=== PATIENT | male | born 1990 | race Caucasian/White ===

== ENCOUNTER → 2019-09-24 09:04 | Outpatient (CLI) | payer OTHER, SELFPAY ==
--- NOTE | 2019-09-24 | DI.US.S_ITS ---
PROCEDURE: US ABDOMEN COMPLETE INDICATIONS: RUQ PAIN TECHNIQUE: Real-time scanning was performed of the abdominal and retroperitoneal organs, with image documentation. COMPARISON: None. FINDINGS: Liver: Liver is normal in size and homogeneous in echotexture. Slightly increased hepatic echogenicity suggesting fatty infiltration. Within the right hepatic lobe posteriorly near the malini hepatis, there are 2 hypoechoic foci without vascularity measuring 1.5 x 1.3 x 0.6 cm and 1.9 x 1.6 x 1.2 cm. Gallbladder: Gallbladder is normal in sonographic appearance without gallstones, gallbladder wall thickening, pericholecystic fluid, or abnormal sonographic Roberson's. Biliary ducts: Intrahepatic bile ducts are non-dilated. Extrahepatic bile duct caliber measures 4 mm. Normal is 6-7 mm or less in diameter, or 10 mm or less post-cholecystectomy. Pancreas: Visualized portions of the pancreas are sonographically normal. Spleen: Spleen is normal in size and homogeneous in echotexture. Kidneys: Kidneys are normal in size and echotexture. Right kidney measures 9.4 cm long; left kidney measures 10.2 cm long. No hydronephrosis or nephrolithiasis. No solid masses. Aorta: Visualized aorta is normal in caliber at less than 3 cm. Iliacs: Proximal common iliac arteries are normal in caliber at less than 2.5 cm. IVC: Intrahepatic inferior vena cava is patent. Miscellaneous: No free abdominal fluid. IMPRESSION: Minimal diffusely increased hepatic echogenicity likely related to chronic hepatocellular disease/fatty infiltration. There are 2 hypoechoic, avascular foci near the malini hepatis in the right hepatic lobe measuring approximately 1.5 and 1.9 cm respectively and are favored to represent focal fatty sparing. If there is persistent clinical concern, consider further characterization with a multiphasic contrast-enhanced CT or MRI of the abdomen (liver mass protocol). Otherwise, unremarkable sonographic evaluation of the abdomen. Dictated by: Mainor Delaney M.D. on 09/24/2019 at 13:14 Approved by: Mainor Delaney M.D. on 09/24/2019 at 13:24
== END ==
PROVIDERS: Visit Provider Family Medicine
DX: R10.11 Right upper quadrant pain (principal)
CPT/HCPCS: 76700

== ENCOUNTER → 2020-11-10 08:58 | Outpatient (CLI) | payer OTHER, SELFPAY ==
[2020-11-10] MEDS: COVID-19 VACC #1, MRNA(MOD) 100 MCG/0.5 ML VIAL IM (09:05)
== END ==
PROVIDERS: Visit Provider Internal Medicine
DX: Z23 Encounter for immunization (principal)
CPT/HCPCS: 0011A; 91301

== ENCOUNTER → 2020-12-08 09:05 | Outpatient (CLI) | payer OTHER, SELFPAY ==
[2020-12-08] MEDS: COVID-19 VACC #2, MRNA(MOD) 100 MCG/0.5 ML VIAL IM (09:12)
== END ==
PROVIDERS: Visit Provider Internal Medicine
DX: Z23 Encounter for immunization (principal)
CPT/HCPCS: 0012A; 91301

== ENCOUNTER → 2023-05-16 09:55 | Outpatient (CLI) | payer OTHER, SELFPAY ==
[2023-05-16 19:17] LABS: Add Manual Diff / Slide Review NO; Basophils Absolute Auto 0 /uL (0-100); Basophils Percent Auto 0.6 % (0-2); Eosinophils Absolute Auto 100 /uL (0-450); Eosinophils Percent Auto 1.7 % (2-4); Hematocrit 44.8 % (41-53); Hemoglobin 15.4 g/dL (13.5-17.5); Lymphocytes Absolute Auto 1700 /uL (1100-4500); Lymphocytes Percent Auto 38.9 % (25-40); Mean Corpuscular HGB Conc 34.2 % (30-36); Mean Corpuscular Hemoglobin 31.1 PG (26-34); Mean Corpuscular Volume 90.9 fL (80-100); Monocytes Absolute Auto 300 /uL (0-900); Monocytes Percent Auto 7.2 % (3-14); Neutrophils Absolute Auto 2200 /uL (1500-7000); Neutrophils Percent Auto 51.6 % (50-75); Platelet Count 263 X10^3/uL (150-400); Red Blood Cell Count 4.93 X10^6/uL (4.5-5.9); White Blood Cell Count 4.3 X10^3/uL (4.5-11.0)
[2023-05-16 19:24] LABS: Alanine Aminotransferase 179 IU/L (<50); Albumin Globulin Ratio 1.7 (1.0-2.8); Alkaline Phosphatase 59 U/L (38-126); Aspartate Aminotransferase 79 IU/L (17-59); BUN Creatinine Ratio 14.1 (6-22); Bilirubin Total 0.6 mg/dL (0.2-1.3); Blood Urea Nitrogen 13 mg/dL (9-20); Calcium 10.2 mg/dL (8.4-10.2); Carbon Dioxide 26 mmol/L (22-32); Chloride 104 mmol/L (98-107); Cholesterol 261 mg/dL (140-199); Estimated Glomerular Filt Rate > 60 mL/min (>60); Globulin 2.9 g/dL (1.7-4.1); Glucose 80 mg/dL (70-100); HDL Cholesterol 62 mg/dL (40-60); HEMOLYSIS < 15 (0-50); LDL Cholesterol Calculated 157 mg/dL (<100); Potassium 4.5 mmol/L (3.4-5.1); Sodium 141 mmol/L (137-145); Total Protein 7.9 g/dL (6.3-8.2); Triglycerides 208 mg/dL (35-150)
[2023-05-16 19:55] LABS: TSH w/ Reflex to FT4 1.61 uIU/mL (0.47-4.68)
== END ==
PROVIDERS: PCP Physician Assistant Medical; Visit Provider Physician Assistant Medical
DX: Z13.9 Encounter for screening, unspecified (principal); R07.9 Chest pain, unspecified
CPT/HCPCS: 80053; 80061; 84443; 85025

== ENCOUNTER → 2023-05-29 12:18 | Outpatient (CLI) | payer OTHER, SELFPAY ==
--- NOTE | 2023-05-29 12:19 | DI.US.S_ITS ---
PROCEDURE: US ABDOMEN LIMITED INDICATIONS: ELEVATED LIVER ENZYMES TECHNIQUE: Real-time scanning was performed of the abdominal and retroperitoneal organs, with image documentation. COMPARISON: [facility], US, US ABDOMEN COMPLETE, 09/24/2019, 9:14. FINDINGS: Liver: Liver is normal in size and homogeneous in echotexture. The parenchyma is diffusely echogenic. Previously described two hypoechoic, a vascular foci are not well seen on today's exam. Gallbladder: No cholelithiasis or sludge. Normal gallbladder wall thickness measuring 2 mm. No pericholecystic fluid. Biliary ducts: Intrahepatic bile ducts are non-dilated. Extrahepatic bile duct caliber measures 2 mm. Normal is 6-7 mm or less in diameter, or 10 mm or less post-cholecystectomy. Pancreas: Visualized portions of the pancreas are sonographically normal. Miscellaneous: No free abdominal fluid. IMPRESSION: 1. Liver is diffusely echogenic which may be seen in the setting of parenchymal disease such as steatosis. Correlate with LFTs. 2. Previously described two hypoechoic, avascular foci within the liver on ultrasound dated September 24, 2019 are not well seen on today's exam. Dictated by: Sanchez Montoya M.D. on 05/29/2023 at 14:23 Approved by: Sanchez Montoya M.D. on 05/29/2023 at 14:27
== END ==
PROVIDERS: PCP Physician Assistant Medical; Referring Provider Physician Assistant Medical; Visit Provider Physician Assistant Medical
DX: R74.8 Abnormal levels of other serum enzymes (principal)
CPT/HCPCS: 76705

== ENCOUNTER → 2023-08-05 13:07 | Outpatient (CLI) | payer OTHER, SELFPAY ==
[2023-08-05 19:27] LABS: Hematocrit 41.2 % (41-53); Hemoglobin 14.2 g/dL (13.5-17.5); Mean Corpuscular HGB Conc 34.5 % (30-36); Mean Corpuscular Volume 86.8 fL (80-100); Platelet Count 273 X10^3/uL (150-400); Red Blood Cell Count 4.74 X10^6/uL (4.5-5.9); Red Cell Distribution Width 12.6 % (11.6-14.8); White Blood Cell Count 6.6 X10^3/uL (4.5-11.0)
[2023-08-05 19:47] LABS: Alanine Aminotransferase 58 IU/L (<50); Albumin 4.5 g/dL (3.5-5.0); Albumin Globulin Ratio 1.6 (1.0-2.8); Alkaline Phosphatase 47 U/L (38-126); Aspartate Aminotransferase 33 IU/L (17-59); BUN Creatinine Ratio 19.4 (6-22); Bilirubin Total 0.4 mg/dL (0.2-1.3); Blood Urea Nitrogen 19 mg/dL (9-20); Calcium 10.1 mg/dL (8.4-10.2); Carbon Dioxide 28 mmol/L (22-32); Chloride 102 mmol/L (98-107); Estimated Glomerular Filt Rate > 60 mL/min (>60); Gamma Glutamyl Transpeptidase 68 U/L (15-73); Globulin 2.8 g/dL (1.7-4.1); Glucose 94 mg/dL (70-100); HEMOLYSIS < 15 (0-50); Potassium 4.2 mmol/L (3.4-5.1); Sodium 137 mmol/L (137-145); Total Protein 7.3 g/dL (6.3-8.2)
== END ==
PROVIDERS: PCP Physician Assistant Medical; Visit Provider Physician Assistant Medical
DX: R79.89 Other specified abnormal findings of blood chemistry (principal); K76.0 Fatty (change of) liver, not elsewhere classified; R74.8 Abnormal levels of other serum enzymes
CPT/HCPCS: 80053; 82977; 85027

== ENCOUNTER → 2023-10-15 13:05 | Outpatient (CLI) | payer OTHER, SELFPAY ==
[2023-10-15 20:17] LABS: Alanine Aminotransferase 37 IU/L (<50); Albumin 4.6 g/dL (3.5-5.0); Albumin Globulin Ratio 1.6 (1.0-2.8); Alkaline Phosphatase 50 U/L (38-126); Aspartate Aminotransferase 31 IU/L (17-59); BUN Creatinine Ratio 19.1 (6-22); Bilirubin Total 0.5 mg/dL (0.2-1.3); Blood Urea Nitrogen 18 mg/dL (9-20); Calcium 9.8 mg/dL (8.4-10.2); Carbon Dioxide 26 mmol/L (22-32); Chloride 103 mmol/L (98-107); Estimated Glomerular Filt Rate > 60 mL/min (>60); Gamma Glutamyl Transpeptidase 54 U/L (15-73); Globulin 2.9 g/dL (1.7-4.1); Glucose 101 mg/dL (70-100); HEMOLYSIS 17 (0-50); Potassium 4.1 mmol/L (3.4-5.1); Sodium 139 mmol/L (137-145); Total Protein 7.5 g/dL (6.3-8.2)
[2023-10-15 20:18] LABS: Add Manual Diff / Slide Review NO; Basophils Absolute Auto 100 /uL (0-100); Basophils Percent Auto 0.9 % (0-2); Eosinophils Absolute Auto 500 /uL (0-450); Eosinophils Percent Auto 7.5 % (2-4); Hematocrit 42.1 % (41-53); Hemoglobin 14.3 g/dL (13.5-17.5); Lymphocytes Absolute Auto 2400 /uL (1100-4500); Lymphocytes Percent Auto 36.4 % (25-40); Mean Corpuscular Hemoglobin 29.5 PG (26-34); Mean Corpuscular Volume 86.9 fL (80-100); Monocytes Absolute Auto 500 /uL (0-900); Monocytes Percent Auto 7.3 % (3-14); Neutrophils Absolute Auto 3100 /uL (1500-7000); Neutrophils Percent Auto 47.9 % (50-75); Platelet Count 289 X10^3/uL (150-400); Red Blood Cell Count 4.84 X10^6/uL (4.5-5.9); Red Cell Distribution Width 13.2 % (11.6-14.8); White Blood Cell Count 6.5 X10^3/uL (4.5-11.0)
== END ==
PROVIDERS: PCP Physician Assistant Medical; Visit Provider Physician Assistant Medical
DX: K76.0 Fatty (change of) liver, not elsewhere classified (principal); F10.90 Alcohol use, unspecified, uncomplicated; R74.8 Abnormal levels of other serum enzymes
CPT/HCPCS: 80053; 82977; 85025

== ENCOUNTER 2024-03-16 00:14 | Emergency (ER) | payer OTHER, SELFPAY ==
[2024-03-16] VITALS (7 sets, daily range): BP systolic 115–131; BP diastolic 70–91; PULSE 78–90; RESP 18–98; TEMP 36.5; O2SAT 97–100; BMI 25.1
[2024-03-16 00:55] LABS: Add Manual Diff / Slide Review NO; Basophils Absolute Auto 0 /uL (0-100); Basophils Percent Auto 0.4 % (0-2); Eosinophils Absolute Auto 700 /uL (0-450); Eosinophils Percent Auto 6.8 % (2-4); Hematocrit 43.9 % (41-53); Hemoglobin 15.1 g/dL (13.5-17.5); Lymphocytes Absolute Auto 2600 /uL (1100-4500); Lymphocytes Percent Auto 24.6 % (25-40); Mean Corpuscular HGB Conc 34.3 % (30-36); Mean Corpuscular Hemoglobin 29.5 PG (26-34); Mean Corpuscular Volume 85.8 fL (80-100); Monocytes Absolute Auto 800 /uL (0-900); Neutrophils Absolute Auto 6600 /uL (1500-7000); Neutrophils Percent Auto 61.2 % (50-75); Platelet Count 321 X10^3/uL (150-400); Red Blood Cell Count 5.12 X10^6/uL (4.5-5.9); Red Cell Distribution Width 14.1 % (11.6-14.8); White Blood Cell Count 10.7 X10^3/uL (4.5-11.0)
[2024-03-16 01:02] LABS: Alanine Aminotransferase 146 IU/L (<50); Albumin 4.8 g/dL (3.5-5.0); Albumin Globulin Ratio 1.4 (1.0-2.8); Alkaline Phosphatase 81 U/L (38-126); Aspartate Aminotransferase 48 IU/L (17-59); BUN Creatinine Ratio 13.5 (6-22); Bilirubin Total 0.6 mg/dL (0.2-1.3); Blood Urea Nitrogen 14 mg/dL (9-20); Calcium 9.9 mg/dL (8.4-10.2); Carbon Dioxide 26 mmol/L (22-32); Chloride 102 mmol/L (98-107); Estimated Glomerular Filt Rate > 60 mL/min (>60); Globulin 3.5 g/dL (1.7-4.1); Glucose 96 mg/dL (70-100); HEMOLYSIS < 15 (0-50); Lipase 64 U/L (23-300); Sodium 138 mmol/L (137-145); Total Protein 8.3 g/dL (6.3-8.2)
--- NOTE | 2024-03-16 01:30 | ED.ABDPAIN ---
HPI - Abdominal Pain General Chief Complaint: Abdominal Pain Stated Complaint: ABD PAIN Time Seen by Provider: 03/16/24 00:59 Source: patient Mode of arrival: Ambulatory History of Present Illness HPI narrative: 33-year-old male with no history of prior abdominopelvic surgeries, no chronic abdominal problems, now with 4 days duration intermittent loose stools, not particularly painful until noon yesterday, central lower abdominal discomfort, not relieved with loose stools, some nausea without emesis. No fevers or chills. No cough, shortness of breath, headache, sore throat symptoms. No dysuria or frequency of urination. No household or close contact exposures to persons with similar symptoms. No recent antibiotic exposure. No travel or camping. He feels little bit better, has not tried any Tylenol or Motrin recent hours. Related Data Home Medications Medication Instructions Recorded Confirmed lorazepam 0.5 mg tablet mg PO 05/03/23 07/31/23 Previous Rx's Medication Instructions Recorded fluoxetine 20 mg capsule 20 mg PO DAILY #90 caps 08/20/23 zolpidem 5 mg tablet (Ambien) 5 mg PO BEDTIME PRN insomnia #10 08/20/23 tabs Allergies Allergy/AdvReac Type Severity Reaction Status Date / Time No Known Drug Allergies Allergy Verified 07/31/23 15:56 Review of Systems Review of Systems Narrative: per HPI Patient History Medical History (Updated 03/16/24 @ 01:50 by Jose Osman MD) GERD (gastroesophageal reflux disease) Anxiety Alcoholic gastritis Alcoholism Social History Smoking Status: Former smoker Smoking Status: Former smoker alcohol intake frequency: holidays/special occasions only Substance Use Type: marijuana Exam Narrative Exam Narrative: GENERAL: Well-developed patient, in mild distress. HEAD: Atraumatic. Normocephalic. EYES: Pupils equal round and reactive. Extraocular motions intact. No scleral icterus. No injection or drainage. ENT: Nose without bleeding, purulent drainage. Throat without erythema, tonsillar hypertrophy or exudate. Airway patent. NECK: Trachea midline. Non tender CARDIOVASCULAR: Regular rate and rhythm without murmurs, gallops, or rubs. RESPIRATORY: Clear to auscultation. Breath sounds equal bilaterally. No wheezes, rales, or rhonchi. GASTROINTESTINAL: Abdomen soft, non-tender, nondistended. EXTREMITIES: No edema or joint tenderness. BACK: Nontender without deformity or crepitance. No flank tenderness. NEURO: AOx3. SKIN: No rash or erythema of visible areas Initial Vital Signs Initial Vital Signs: Vital Signs Temperature 97.7 F 03/16/24 00:26 Pulse Rate 84 03/16/24 00:26 Respiratory Rate 98 H 03/16/24 00:26 Blood Pressure 126/82 03/16/24 00:26 Pulse Oximetry 98 03/16/24 00:26 Oxygen Delivery Method Room Air 03/16/24 00:26 Course Orders Ordered: ED Orders 03/16/24 00:30 EKG-12 Lead Stat 03/16/24 00:39 Complete Blood Count AUTO DIFF Stat Comprehensive Metabolic Panel Stat Ictotest Urine Stat Lipase Stat Urinalysis and Microscopic Stat 03/16/24 02:00 GI Panel (Film Array) Stat Discontinued Medications Ondansetron HCl (Ondansetron 4 Mg/2 Ml Inj) 4 mg IV NOW PRN PRN Reason: Nausea And Vomiting Ondansetron HCl (Ondansetron 4 Mg Odt) 4 mg PO NOW PRN PRN Reason: Nausea And Vomiting Vital Signs Vital signs: Vital Signs - 8 hr 03/16/24 00:26 03/16/24 01:06 03/16/24 01:09 Temperature 97.7 F Pulse Rate 84 85 Respiratory Rate 98 H Blood Pressure 126/82 131/91 H Pulse Oximetry 98 100 Oxygen Delivery Method Room Air 03/16/24 01:09 03/16/24 01:30 03/16/24 01:30 Temperature Pulse Rate 82 90 Respiratory Rate Blood Pressure 122/81 Pulse Oximetry 100 98 Oxygen Delivery Method Room Air Room Air 03/16/24 02:03 03/16/24 02:03 03/16/24 02:30 Temperature Pulse Rate 78 81 Respiratory Rate Blood Pressure 115/77 Pulse Oximetry 98 97 Oxygen Delivery Method 03/16/24 02:30 03/16/24 03:00 03/16/24 03:00 Temperature Pulse Rate 83 Respiratory Rate 18 Blood Pressure 120/70 126/73 Pulse Oximetry 97 Oxygen Delivery Method MDM - Abdominal Pain Lab Data Attestation: I reviewed the patient's lab results. 03/16/24 00:39 03/16/24 00:39 Labs: Lab Results 03/16/24 03/16/24 Range/Units 00:39 02:00 WBC 10.7 (4.5-11.0) X10^3/uL RBC 5.12 (4.5-5.9) X10^6/uL Hgb 15.1 (13.5-17.5) g/dL Hct 43.9 (41-53) % MCV 85.8 (80-100) fL MCH 29.5 (26-34) PG MCHC 34.3 (30-36) % RDW 14.1 (11.6-14.8) % Plt Count 321 (150-400) X10^3/uL Neut % (Auto) 61.2 (50-75) % Lymph % (Auto) 24.6 L (25-40) % Stark % (Auto) 7.0 (3-14) % Eos % (Auto) 6.8 H (2-4) % Baso % (Auto) 0.4 (0-2) % Neut # (Auto) 6600 (6344-9575) /uL Lymph # (Auto) 2600 (9769-6568) /uL Stark # (Auto) 800 (0-900) /uL Eos # (Auto) 700 H (0-450) /uL Baso # (Auto) 0 (0-100) /uL Sodium 138 (137-145) mmol/L Potassium 4.0 (3.4-5.1) mmol/L Chloride 102 (98-107) mmol/L Carbon Dioxide 26 (22-32) mmol/L BUN 14 (9-20) mg/dL Creatinine 1.04 (0.66-1.25) mg/dL Estimated GFR > 60 (>60) mL/min BUN/Creatinine Ratio 13.5 (6-22) Glucose 96 (70-100) mg/dL Calcium 9.9 (8.4-10.2) mg/dL Total Bilirubin 0.6 (0.2-1.3) mg/dL AST 48 (17-59) IU/L ALT 146 H (<50) IU/L Alkaline Phosphatase 81 (38-126) U/L Total Protein 8.3 H (6.3-8.2) g/dL Albumin 4.8 (3.5-5.0) g/dL Globulin 3.5 (1.7-4.1) g/dL Albumin/Globulin Ratio 1.4 (1.0-2.8) Lipase 64 (23-300) U/L Urine Color Yellow Urine Appearance Clear Urine pH 5.5 (4.5-8.0) Ur Specific [place] >=1.030 H (1.000-1.035) Urine Protein Negative (Negative) Urine Glucose (UA) Negative (Negative) g/dL Urine Ketones 2+ H (NEGATIVE) Urine Occult Blood Negative (Negative) Urine Nitrate Negative (Negative) Urine Bilirubin 1+ H (NEGATIVE) Ur Bilirubin Confirm Negative (Negative) Urine Urobilinogen 1.0 (0.2) E.U./dL Ur Leukocyte Esterase Negative (NEGATIVE) Urine RBC None seen (0-5/HPF) Urine WBC None seen (0-5/HPF) Ur Squamous Epith Cells 0-1 /hpf (0-5/HPF) Amorphous Sediment 1+ Urine Bacteria None seen (None) Urine Mucus 2+ H (Negative) Ur Culture Indicated? Cult not indicated Vol Urine Centrifuged 10ml (spun) Stl C. cayetanensis PCR Not detected (Not Detect) Stool Rotavirus (PCR) Not detected (Not Detect) Stool Adenovirus (PCR) Not detected (Not Detect) Stool Astrovirus (PCR) Not detected (Not Detect) Stool Cryptosporidium PCR Not detected (Not Detect) Stl E.coli Shiga Tox PCR Not detected (Not Detect) St Sh/Enteroin Ecoli PCR Not detected (Not Detect) Stl Enterotoxigenic E PCR Not detected (Not Detect) Stool EPEC (PCR) Not detected (Not Detect) Stl E. histolytica PCR Not detected (Not Detect) Stool Giardia Lamblia PCR Not detected (Not Detect) Stool Sapovirus (PCR) Not detected (Not Detect) Stl P. shigelloides PCR Not detected (Not Detect) St Y.enterocolitica PCR Not detected (Not Detect) Stool Vibrio (PCR) Not detected (Not Detect) Stl Vibrio cholerae PCR Not detected (Not Detect) Stl Enteroaggr Ecoli PCR Not detected (Not Detect) Stl Norovirus GI/GII PCR Not detected (Not Detect) Campylobacter (PCR) Not detected (Not Detect) C. difficile Tox (PCR) Not detected (Not Detect) Salmonella (PCR) Not detected (Not Detect) Point of care testing: Urine Dip Bedside Urine Glucose Negative Bedside Urine Bilirubin - Negative Bedside Urine Ketone +++ 80 Urine Specific [place] 1.03 Bedside Urine Occult Blood - Negative Bedside Urine pH 5.5 Bedside Urine Protein +/- 15 Bedside Urine Urobilinogen - Negative Bedside Urine Nitrite - Negative Bedside Urine Leukocytes - Negative Esterase MDM Narrative Medical decision making narrative: 33-year-old male with recent diarrhea and nausea, crampy abdominal discomfort since noon yesterday, seems to be improving now, abdomen benign, without tenderness on exam, waxing and waning symptoms. He feels that he can give a stool specimen, stool study for enteric pathogen PCR testing ordered. DDx consider enteritis, colitis, diverticulitis, seems atypical for appendicitis, other. We discussed CT imaging, he is feeling better, no tenderness on exam, he would like to hold off for now. He would like to see if he can produce a stool for lab testing. He declines pain medication when offered. He declined any antinausea medication when offered. Patient did not want to wait any longer, feels better, wants to go home, stool study results pending. Home with . Follow up with PCP, return precautions discussed Late entry, stool studies negative. Discharge Plan Departure Patient Disposition: Home Clinical Impression: Diarrhea, Abdominal pain Activity Restrictions/Additional Instructions: Recent abdominal pain and diarrhea. No fever on triage. Symptoms seem to be improving. No significant tenderness on exam. We discussed CT abdomen and pelvis imaging, declined for now. Stool specimen was obtained, sent to lab, results pending at this time. You felt improved and wanted to go home. We will contact you if there is any positive results on stool specimen. Otherwise encourage hydration. Take Tylenol as needed for discomfort. Prescriptions: No Action zolpidem [Ambien] 5 mg tablet 5 mg PO BEDTIME PRN (Reason: insomnia) Qty: 10 0RF Rx Instructions: always take with food fluoxetine 20 mg capsule 20 mg PO DAILY Qty: 90 3RF lorazepam 0.5 mg tablet PO Referrals: Veronica Jiménez PA-C [Primary Care Provider] - Stand Alone Forms: Patient Portal/API
[2024-03-16 01:32] LABS: Appearance Urine UA CLEAR; Bilirubin Urine UA 1+ (NEGATIVE); Color Urine UA YELLOW; Glucose Urine UA NEGATIVE (Negative); Ketones Urine UA 2+ (NEGATIVE); Leukocyte Esterase Urine UA NEGATIVE (NEGATIVE); Nitrite Urine UA NEGATIVE (Negative); Occult Blood Urine UA NEGATIVE (Negative); Protein Urine UA NEGATIVE (Negative); Specific Gravity Urine UA >=1.030 (1.000-1.035); pH Urine UA 5.5 (4.5-8.0)
[2024-03-16 01:40] LABS: Amorphous Sediment Urine 1+; Bacteria Urine None Seen; Ictotest Urine Negative (Negative); RBC Urine None Seen (0-5/HPF); Squamous Epithelial Cell Urine 0-1 /HPF (0-5/HPF); Urine Volume 10mL (spun); WBC Urine None Seen (0-5/HPF)
[2024-03-16 01:41] LABS: Culture Indicated Urine Cult Not Indicated; Mucus Urine 2+ (Negative)
[2024-03-16 04:08] LABS: Adenovirus F 40/41 Not Detected (Not Detect); Astrovirus Not Detected (Not Detect); Campylobacter Not Detected (Not Detect); Clostridium difficile toxin AB Not Detected (Not Detect); Cryptosporidium Not Detected (Not Detect); Cyclospora cayetanensis Not Detected (Not Detect); Entamoeba histolytica Not Detected (Not Detect); Enteroaggregative E.coli Not Detected (Not Detect); Enteropathogenic E.coli Not Detected (Not Detect); Enterotoxigenic E.coli It/st Not Detected (Not Detect); Giardia lamblia Not Detected (Not Detect); Norovirus GI/GII Not Detected (Not Detect); Plesiomonsa shigelloides Not Detected (Not Detect); Rotavirus A Not Detected (Not Detect); Salmonella Not Detected (Not Detect); Sapovirus Not Detected (Not Detect); Shiga-like toxin-prod E.coli Not Detected (Not Detect); Shigella/Enteroinvasive E.coli Not Detected (Not Detect); Vibrio Not Detected (Not Detect); Vibrio cholerae Not Detected (Not Detect); Yersinia enterocolitica Not Detected (Not Detect)
== END 2024-03-16 03:20 | disposition home or self-care (01) ==
PROVIDERS: Emergency Provider Emergency Medicine; PCP Physician Assistant Medical
DX: R10.30 Lower abdominal pain, unspecified (principal); R19.7 Diarrhea, unspecified; R11.0 Nausea
CPT/HCPCS: 36415; 80053; 81001; 81003; 83690; 85025; 87507; 99283

== ENCOUNTER → 2024-03-26 11:35 | Outpatient (CLI) | payer OTHER, SELFPAY ==
[2024-03-26 21:12] LABS: Hematocrit 41.3 % (41-53); Hemoglobin 14.1 g/dL (13.5-17.5); Mean Corpuscular HGB Conc 34.1 % (30-36); Mean Corpuscular Hemoglobin 29.7 PG (26-34); Mean Corpuscular Volume 86.9 fL (80-100); Platelet Count 326 X10^3/uL (150-400); Red Blood Cell Count 4.75 X10^6/uL (4.5-5.9); Red Cell Distribution Width 13.9 % (11.6-14.8); White Blood Cell Count 9.8 X10^3/uL (4.5-11.0)
[2024-03-26 21:15] LABS: Alanine Aminotransferase 75 IU/L (<50); Albumin 4.4 g/dL (3.5-5.0); Albumin Globulin Ratio 1.6 (1.0-2.8); Alkaline Phosphatase 66 U/L (38-126); Aspartate Aminotransferase 45 IU/L (17-59); Bilirubin Total 0.4 mg/dL (0.2-1.3); Blood Urea Nitrogen 20 mg/dL (9-20); Calcium 9.6 mg/dL (8.4-10.2); Carbon Dioxide 24 mmol/L (22-32); Chloride 107 mmol/L (98-107); Estimated Glomerular Filt Rate > 60 mL/min (>60); Globulin 2.8 g/dL (1.7-4.1); Glucose 94 mg/dL (70-100); HEMOLYSIS 19 (0-50); Potassium 4.4 mmol/L (3.4-5.1); Sodium 139 mmol/L (137-145); Total Protein 7.2 g/dL (6.3-8.2)
[2024-03-26 21:16] LABS: Add Manual Diff / Slide Review YES
[2024-03-26 21:38] LABS: Neutrophils Absolute Manual 4018 /uL (3000-5900); RBC Morphology Normal Morphology; Total Cells Counted 100
[2024-03-26 21:43] LABS: Erythrocyte Sedimentation Rate 3 MM/HR (0-15)
== END ==
PROVIDERS: PCP Physician Assistant Medical; Visit Provider Physician Assistant
DX: R10.9 Unspecified abdominal pain (principal); R79.89 Other specified abnormal findings of blood chemistry
CPT/HCPCS: 80053; 85007; 85025; 85651

== ENCOUNTER → 2024-03-27 14:42 | Outpatient (CLI) | payer OTHER, SELFPAY ==
[2024-03-31 08:36] LABS: Fecal Immunochemical Test Negative (Negative)
== END ==
PROVIDERS: PCP Physician Assistant Medical; Visit Provider Family Medicine
DX: R19.7 Diarrhea, unspecified (principal); R79.89 Other specified abnormal findings of blood chemistry; R10.9 Unspecified abdominal pain
CPT/HCPCS: 82274; 87177